=== PATIENT | female | born 1990 | race Caucasian/White ===

== ENCOUNTER 2016-12-19 12:55 | Emergency (ER) | payer OTHER ==
[~2016-12-19] VITALS: Ht 157.5 cm; Wt 64.0 kg
[~2016-12-19 12:55] MED LIST: BENTYL10 MG PO; CIPRO500 MG PO; CLEOCIN HCL300 MG PO; DIAZEPAM10 MG PO; EXTRA STRENGTH500 MG PO; IBUPROFEN600 MG PO; MOTRIN IB200 MG PO; NORCO 5-325 TA1 EACH PO; PERCOCET 10-321 EACH PO
[2016-12-19] MEDS ORDERED: ONDANSETRON ODT8 MG PO (14:07)
[2016-12-19] MEDS ORDERED: NORCO 5-325 TA1 EACH PO (14:07)
--- OUTSIDE RECORDS SUMMARY | 2016-12-19 14:09 | XMS ---
Demographics + + + | Address | [address] | | | [place] [address] | + + + | Preferred Language | Unknown | + + + | Marital Status | Unknown | + + + | Orthodoxy Affiliation | Unknown | + + + | Race | Unknown | + + + | Ethnic Group | Unknown | + + + Author + + + | Author | [facility] | + + + | Organization | [facility] | + + + | Address | [address] | | | [place] [address] | + + + | Phone | | + + + Care Team Providers + + + + | Care Staff Anesthesiologist Name | Role | Phone | + + + + Unavailable | Unavailable | + + + + PROBLEMS Unknown Problems ALLERGIES Unknown Allergies SOCIAL HISTORY No smoking Hx information available PLAN OF CARE VITAL SIGNS MEDICATIONS Unknown Medications RESULTS No Results PROCEDURES No Known procedures IMMUNIZATIONS No Known Immunizations"
--- OUTSIDE RECORDS SUMMARY | 2016-12-19 14:10 | XMS ---
Demographics + + + | Address | [address] | | | [place] [address] | + + + | Preferred Language | Unknown | + + + | Marital Status | Unknown | + + + | Episcopalian Affiliation | Unknown | + + + | Race | Unknown | + + + | Ethnic Group | Unknown | + + + Author + + + | Author | [facility] | + + + | [facility] | + + + | Address | [address] | | | [place] [address] | + + + | Phone | [phone] | + + + Care Team Providers + + + + | Care Tree And Shrub Worker Name | Role | Phone | + + + + Unavailable | Unavailable | + + + + PROBLEMS +---------+ + + +--------+ + + | Type | Condition | ICD9-CM | [id number] | Onset | Condition | SNOMED | | | | Code | Code | Dates | Status | Code | +---------+ + + +--------+ + + | Problem | Alcoholism | | F10.20 | | Active | [id number] | | | in | | | | | | | | recovery | | | | | | +---------+ + + +--------+ + + | Problem | Anxiety | F41.9 | | | Active | [id number] | | | disorder | | | | | | +---------+ + + +--------+ + + | Problem | PTSD | | F43.10 | | Active | [id number] | | | (post-trau | | | | | | | | matic | | | | | | | | stress | | | | | | | | disorder) | | | | | | +---------+ + + +--------+ + + ALLERGIES + + + + +--------+ | Substance | Reaction | Event Type | Date | Status | + + + + +--------+ | Penicillin | rash | Drug Allergy | Oct, | Active | + + + + +--------+ SOCIAL HISTORY Never Assessed PLAN OF CARE + +---------+ | Activity | Details | + +---------+ +---+ | | +---+ + + + | Follow Up | prn Reason:null | + + + VITAL SIGNS + + + + | Height | 62 in | 2016-11-02 | + + + + | Weight | 140 lbs | 2016-11-02 | + + + + | BMI | 25.60 kg/m2 | 2016-11-02 | + + + + | Heart Rate | 101 /min | 2016-11-02 | + + + + | Blood pressure systolic | 133 mm Hg | 2016-11-02 | + + + + | Blood pressure diastolic | 80 mm Hg | 2016-11-02 | + + + + MEDICATIONS + + + + + + + +--------+ | Medicati | Instruct | Dosage | Frequenc | Start | End Date | Duration | Status | | on | ions | | y | Date | | | | + + + + + + + +--------+ | Valium | intravag | 1 tablet | | Oct, | | 7 days | Active | | 10 mg | inally | as | | 2016 | | | | | | three | needed | | | | | | | | times a | | | | | | | | | day | | | | | | | | | PRN/as | | | | | | | | | needed | | | | | | | + + + + + + + +--------+ | Flexeril | | | | | | | Active | | 10 MG | | | | | | | | + + + + + + + +--------+ RESULTS No Results PROCEDURES + + +--------+ + | Procedure | Date Ordered | Result | Body Site | + + +--------+ + | [facility] MED/CURRENT | Nov 02, 2016 | | | | MED MERGE | | | | + + +--------+ + | DOC MEDS VERIFIED | Nov 02, 2016 | | | | W/PT OR RE | | | | + + +--------+ + | FLU IMM NO | Nov 02, 2016 | | | | ORD/ADMIN DOC MUKESH | | | | + + +--------+ + | PT TOBACCO USE DONE | Nov 02, 2016 | | | | RCVD TLK | | | | + + +--------+ + IMMUNIZATIONS No Known Immunizations MEDICAL (GENERAL) HISTORY + + + + | Type | Description | Date | + + + + | Medical History | headache | | + + + + | 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 Ospina | | + + + + | Hospitalization History | colitis | 2015 | + + + +"
--- OUTSIDE RECORDS SUMMARY | 2016-12-19 14:11 | XMS ---
Demographics + + + | Address | [address] | | | [place] [address] | + + + | Preferred Language | Unknown | + + + | Marital Status | Unknown | + + + | Jew Affiliation | Unknown | + + + | Race | Unknown | + + + | Ethnic Group | Unknown | + + + Author + + + | Author | [facility] | + + + | Organization | [facility] | + + + | Address | [address] | | | [place] [address] | + + + | Phone | | + + + Care Team Providers + + + + | Care Cryptozoologist Name | Role | Phone | + + + + Unavailable | Unavailable | + + + + PROBLEMS Unknown Problems ALLERGIES Unknown Allergies SOCIAL HISTORY No smoking Hx information available PLAN OF CARE VITAL SIGNS MEDICATIONS Unknown Medications RESULTS No Results PROCEDURES No Known procedures IMMUNIZATIONS No Known Immunizations"
== END 2016-12-19 14:50 | disposition home or self-care (01) ==
LOC: ED 12:55
DX: R11.2 Nausea with vomiting, unspecified (principal); T40.2X5A Adverse effect of other opioids, initial encounter; K08.89 Other specified disorders of teeth and supporting structures; F17.200 Nicotine dependence, unspecified, uncomplicated; Z88.0 Allergy status to penicillin; Z90.710 Acquired absence of both cervix and uterus; Z79.899 Other long term (current) drug therapy
CPT/HCPCS: 99283

== ENCOUNTER 2017-02-08 16:02 | Emergency (ER) | payer OTHER ==
[~2017-02-08] VITALS: Ht 157.5 cm; Wt 63.5 kg
[~2017-02-08 16:02] MED LIST changes: +ONDANSETRON ODT8 MG PO
[2017-02-08] MEDS ORDERED: TAMIFLU75 MG PO (16:22)
[2017-02-08] MEDS ORDERED: ZOFRAN ODT4 MG PO (16:22)
[2017-06-09] MEDS ORDERED: AMBIEN10 MG PO (11:34)
== END 2017-02-08 16:40 | disposition home or self-care (01) ==
LOC: ED 16:02
DX: J11.1 Influenza due to unidentified influenza virus with other respiratory manifestations (principal); F17.200 Nicotine dependence, unspecified, uncomplicated; Z90.710 Acquired absence of both cervix and uterus; Z88.0 Allergy status to penicillin
CPT/HCPCS: 99283

== ENCOUNTER 2017-07-11 14:27 | Inpatient (IN) | payer OTHER ==
[~2017-07-11] VITALS: Ht 157.5 cm; Wt 63.6 kg
[~2017-07-11 14:27] MED LIST changes: +AMBIEN10 MG PO; +TAMIFLU75 MG PO; +ZOFRAN ODT4 MG PO
--- NOTE | 2017-07-11 17:54 | NUR ---
RECIEVED REPORT FROM POLINA FORBES OVER THE PHONE. POLINA FORBES REQUESTS THAT MED/SURG START MEDS DUE TO PYXIS ISSUE. IV FLUIDS CHANGED TO LR AT 125ML/HR. IV FLGYL STARTED, CIPRO WILL RUN WHEN COMPLETE. NO PAIN MEDICATIONS AVAILABLE. NO FAMILY LOCALLY. PT EDUCATION GIVEN. PT VOIDED 100ML.
--- NOTE | 2017-07-11 19:20 | NUR ---
IN ROOM FOR REPORT, PT IS AWAKE IN BED AND READY TO HEAD TO SURGERY. SHE HAS LR AND CIPRO INFUSING AT THIS TIME. CALL LIGHT IS WITHIN REACH.
--- NOTE | 2017-07-11 19:40 | NUR ---
PT WAS TAKEN TO SURGERY AT THIS TIME.
--- NOTE | 2017-07-11 21:32 | NUR ---
07/11/172131 Vonda Jones 2116 PT ARRIVED TO PACU, PT REACTIVE WITH 6L VIA MASK ON. RESP EVEN AND UNLABORED. 2119 PT WOKE TO TACTILE STIMULI AND O2 WAS REMOVED PER REQUEST. PT ENCOURAGED TO DEEP BREATH AND COUGH. PT ABLE TO FOLLOW COMMANDS.
--- NOTE | 2017-07-11 22:42 | NUR ---
PT ARRIVED BACK FROM PACU. HER RESPRIAATIONS ARE EVEN AND NONLABORED. VS ARE WNL. PT IS RATING PAIN AT 4/10. SHE IT DRINKING WATER AT THIS TIME AND NO COMPLAINTS OF NAUSEA.
--- NOTE | 2017-07-11 23:10 | NUR ---
PATIENT CALLED STATED HER PAIN IS GOING UP TO 6.5 TO 7. RN YESSI NOTIFIED.PATIENT ASKED FOR COLD AND WARM PACK. GIVEN.
--- NOTE | 2017-07-12 01:53 | NUR ---
PT CALLED COMPLAINING OF 6/10 PAIN, WE DISCUSSED PAIN MEDICATION OPTIONS AND PT AGREED TO TRY MOTRIN AND 1 MORE DOSE OF MORPHIN THEN SWITCH TO 2 MORCO AT A TIME. PT DENIES FURTHER NEEDS AT THIS TIME.
--- NOTE | 2017-07-12 04:09 | NUR ---
ADMINISTERED 2 NORCO FOR 5/10 PAIN, AND BROUGHT PT A NEW HEAT PAD FOR HER NECK. FRESH WATER IS AT BEDSIDE, HELPED PT TO THE COMMODE AND BACK TO BED. LAP SITES ARE DRY AND INTACT. PT DENIES FURTHER NEEDS AT THIS TIME.
--- NOTE | 2017-07-12 06:03 | NUR ---
HELPED PT TO THE RESTROOM, AND BROUGHT PT ORANGE JUICE. PT STATES THE GAS PAIN IS WORSE, WILL TRY TO HOLD OFF ON PAIN MEDS.
--- NOTE | 2017-07-12 06:52 | NUR ---
AFTER ENCOURAGING PT TO WALK TO HELP RELIEVE THE GAS PAIN, PT WALKED SANTIAGO APPROX 8 TIMES. SHE STATES HER ABDOMINAL PAIN INCREASED TO A 7/10. ADMINISTERING 2 MG IV MORPHINE AT THIS TIME.
--- NOTE | 2017-07-12 07:36 | NUR ---
PT SITTING UP IN BED ALERT AND ORIENTED, NO DISTRESS NOTED. PT TEXTING ON PHONE AND VISITNG WITH GUEST AT BEDSIDE.
--- NOTE | 2017-07-12 08:04 | NUR ---
PT SITTING UP EATING BREAKFAST HASHBROWNS WITH KETCHUP AND SAUSAGE AND LAZCANO. NO DISTRESS NOTED. PT ALSO VISITNG ON CELL PHONE. SHE REPORTS PAIN 8/10 AT THIS TIME. AT RIGHT SHOULDER AND ABD
--- NOTE | 2017-07-12 09:39 | NUR ---
RN INTO RE-ASSESS PT PAIN, PT RESTING IN BED EYES CLOSED RR EVEN AT 16 BPM NO DISTRESS NOTED PT POSTURE AND FACIAL FEATURES RELAXED, PT APPEARS TO BE SLEEPING. PT ALERT TO RN IN ROOM, DROWSY REPORTS PAIN 5/10 MOTRIN ADMINISTERED. PT CONSUMED 90% OF BREAKFAST NO NAUSEA. REQUEST ORANGE SHERBERT ICE CREAM. NO OTHER REQUESTS AT THIS TIME.
--- NOTE | 2017-07-12 10:32 | HP ---
[facility] [address] [place], [place] [address] Signed ADMISSION DATE: 07/11/2017 REASON FOR ADMISSION: Severe progressive right lower abdominal pain. HISTORY OF PRESENT ILLNESS: This 26-year-old white woman, presented to the emergency room where she was evaluated by Dr. Valladares, emergency room physician, with complaint of severe right lower abdominal pain. Her pain began on Tuesday (today is Tuesday). Her pain has gradually worsened and radiates somewhat into the back, but is most dominantly at McBurney's point. She has had no associated hematemesis or blood per rectum, but did describe some diarrhea. She carries a diagnosis of "ulcerative colitis" from the past, so she takes no medications for management of it, generally speaking. She has had no blood per rectum. PAST MEDICAL HISTORY: Her past medical history does include cholecystectomy in [place], [place], as well as hysterectomy in 2017, by Dr. Saunders; review of his operative report confirms that she had chronic pelvic pain, interstitial cystitis, and known history of alcoholism in remission and bladder mucosal metaplasia. She did undergo a CT scan as interpreted by Dr. Navas, which showed no evidence of ovarian mass and the appendix was visualized, but not distended or fluid-filled and there was a subtle haziness around it, possibly due to early appendicitis. The small bowel and colon appeared normal. There is no sign of colitis. There was surgical absence of the uterus. Ovaries are considered normal. There was no sign of ovarian cyst. The gallbladder was surgically absent as well. PAST MEDICAL HISTORY: Includes: 1. Ulcerative colitis, currently untreated. 2. History of hysterectomy for pelvic pain. 3. History of cholecystectomy for biliary colic. 4. Colonoscopy in the past by Dr. Ospina, said to be normal without sign of colitis. CURRENT MEDICATIONS: Include Valium use history. Also, Ambien 10 mg at bedtime. ALLERGIES: She has allergy to penicillin. REVIEW OF SYSTEMS: Electronically Signed By: KWAME HENDRIX MD 07/12/17 1032 PATIENT NAME: GISELLA ELISE HISTORY AND PHYSICAL DATE OF : 86 REPORT #: [id number] PHYSICIAN: KWAME HENDRIX MD PCP: DHEERAJ CARMONA REPORT IS CONFIDENTIAL AND NOT TO BE RELEASED WITHOUT AUTHORIZATION [facility] [address] [place], [place] [address] Signed She denies any shortness of breath or chest pain. Has had no dysphagia or dysuria. Denies any hematemesis. Denies flank pain. PHYSICAL EXAMINATION: GENERAL: Dark haired, white woman, who looks to be quite uncomfortable. Mucous membranes are slightly dry. Trachea is midline. CHEST: Clear. HEART: Regular without murmur. ABDOMEN: Nondistended and flat. She has some abdominal tattoos on the left side. Rovsing's sign is equivocal. She has marked tenderness at McBurney point. There is no palpable mass. Has no ascites. EXTREMITIES: Show no clubbing, cyanosis, or edema. LABORATORY DATA: Show a white count of 7.2, hematocrit of 40.7, platelets 245,000. Chem profile is normal. Potassium is 3.5. Liver enzymes are normal. Beta-HCG negative as would be expected with hysterectomy. Urinalysis is normal. CT scan is reviewed in addition to the actual report, which shows a normal liver and spleen. There is no sign of ascites. Pancreas appears normal. Both kidneys are normal. There is no evidence of umbilical hernia proper. No sign of incisional hernia. The coronal view shows no evidence of terminal ileitis or colitis otherwise. Appendix is visualized and slightly edematous as previously described, but not elongated and I detect no sign of fecalith proper. ASSESSMENT: Her clinical exam is highly consistent with appendicitis, though I suspect she probably has some underlying pain problems generally. She has had relatively numerous operations given her young age. Still, there is tenderness at McBurney's point and although white count is normal, CT scan does show findings suggestive of possible early appendicitis. Under these circumstances, I offered continued observation versus progressing to operation to include laparoscopy and possible open procedure to include appendectomy. The risks of bleeding, infection, failure of diagnosis, missed diagnosis, and need for other indicated procedures were reviewed in detail. She understands. She strongly wished to proceed to the operation. We will make arrangements to do that tonight. MD ANITHA Leon/MARGARITOL /[id number] Electronically Signed By: KWAME HENDRIX MD 07/12/17 1032 PATIENT NAME: GISELLA ELISE HISTORY AND PHYSICAL DATE OF : 86 REPORT #: [id number] PHYSICIAN: KWAME HENDRIX MD PCP: DHEERAJ CARMONA REPORT IS CONFIDENTIAL AND NOT TO BE RELEASED WITHOUT AUTHORIZATION [address] [address] Signed cc: MD Fei Naranjo DO Copies: VEGA VALLADARES MD, JAMES D DO ~ Electronically Signed By: KWAME HENDRIX MD 07/12/17 1032 PATIENT NAME: GISELLA ELISE HISTORY AND PHYSICAL DATE OF : 86 REPORT #: [id number] PHYSICIAN: KWAME HENDRIX MD PCP: DHEERAJ CARMONA REPORT IS CONFIDENTIAL AND NOT TO BE RELEASED WITHOUT AUTHORIZATION
--- NOTE | 2017-07-12 10:32 | OR ---
[facility] [address] [place], [place] [address] Signed DATE OF OPERATION: 07/11/2017 SURGEON: Kwame Hendrix MD PREOPERATIVE DIAGNOSES: 1. Severe right lower abdominal pain and tenderness. CT scan equivocal for appendicitis. 2. History of cholecystectomy and hysterectomy. POSTOPERATIVE DIAGNOSES: 1. Appendix appearing white and reasonably soft, uncertain if early appendicitis. 2. Meckel's diverticulum. PROCEDURE: 1. Laparoscopy. 2. Laparoscopic Meckel's diverticulectomy. 3. Laparoscopic appendectomy. ANESTHESIA: General endotracheal, Rizwana Marylu, NUCLEAR TECHNICIAN and local 20 mL of 0.25% Marcaine with epinephrine. INDICATION: This 26-year-old white woman presented to the emergency room and evaluated by Dr. Scott Valladares for considerable right lower abdominal pain and tenderness. The patient has a history of cholecystectomy in the past as well as hysterectomy performed by Dr. Deleon about a year ago. This was for chronic abdominal pain. She began having pain in the right lower abdomen on Tuesday (today is Tuesday) and has been unrelenting. A CT scan was performed, which showed the appendix to have possible mild early appendicitis or edema. No sign of dilation. LAB STUDIES: Including urinalysis, CBC, and chem profile are essentially normal. She has surgical absence of uterus and gallbladder as noted on CT scan. There is no sign of ovarian cystic change. She has been fluid resuscitated and is taken to the operating room for laparoscopy for laparoscopic appendectomy and other indicated procedures. She understands the risks of bleeding, infection, failure to cure the problem, misdiagnosis, and other unforeseen complications including possible need for conversion to open operation. Understands that she wished to proceed. FINDINGS: Electronically Signed By: KWAME HENDRIX MD 07/12/17 1032 PATIENT NAME: GISELLA ELISE OPERATIVE REPORT DATE OF : 86 REPORT #: [id number] PHYSICIAN: KWAME HENDRIX MD PCP: DHEERAJ CARMONA REPORT IS CONFIDENTIAL AND NOT TO BE RELEASED WITHOUT AUTHORIZATION [facility] [address] [place], [place] [address] Signed There is no sign of ascites or carcinomatosis. The liver appeared normal. There was scar tissue where a previous gallbladder was. As regard to the cecum, it appeared normal, and the appendix was relatively soft, but was white and although not firm and hard may represent early appendicitis. The terminal ileum was normal. Of note, but not expected, was a relatively large Meckel's diverticulum approximately 2 feet from the ileocecal valve as might be expected. This was excised endoscopically and transverse configuration overall. The right ovary was identified and normal. No sign of cyst or other problem. The remaining small bowel and stomach were normal. DESCRIPTION OF PROCEDURE: The patient was brought to the operating room, given a general endotracheal anesthetic. She received preoperative antibiotic Cipro as provided by emergency room physician, though cefoxitin had been ordered. Sequential compression device stockings were used, and heparin was subcutaneously administered. After satisfactory general endotracheal anesthesia, the abdomen was prepared with a chlorhexidine solution and draped sterilely. An infraumbilical incision was made transecting the previous circum or umbilical incision. Dissection was carried through the subcutaneous tissue and using an open Steve cannula technique, pneumoperitoneum was achieved to a level of 14 mmHg of carbon dioxide gas. Intraabdominal inspection showed no sign of ascites or carcinomatosis. No sign of purulence. The liver was examined and found to be normal with mild fatty infiltration. There was scar tissue noted in the gallbladder fossa area. A 12 mm epigastric port was placed, and the camera placed to that site. A 30-degree scope was used. Manipulation of the right lower abdomen after rotating the patient [id number] demonstrated the cecum which was relatively mobile and non inflamed. The appendix was visualized and found to be somewhat whitish elongated, not particularly inflamed and certainly not purulent by any means. A right lower quadrant 5 mm port was placed in with two hand manipulation. The small bowel was run from the terminal ileum more proximally. The terminal ileum appeared normal as did the antimesenteric fat pad of Treves. Approximately 2 feet from the ileocecal valve was found to be a Meckel's diverticulum. It was relatively generous in size and with characteristic appearance including the Meckel's mesentery. It did not appear to be particularly inflamed. There is certainly no sign of perforation. The Meckel's diverticulum was elevated and plans made for resection. The mesentery to the Meckel's was divided with electrocautery better skeletonizing the Meckel's diverticulum. Using an Endo JUNE stapling device, excision of Meckel's diverticulum was undertaken. The specimen was withdrawn through the infraumbilical port site and later bivalved and found to have relatively normal-appearing mucosa. Irrigation was undertaken at the transection line in the small bowel. Although the Electronically Signed By: KWAME HENDRIX MD 07/12/17 1032 PATIENT NAME: GISELLA ELISE OPERATIVE REPORT DATE OF : 86 REPORT #: [id number] PHYSICIAN: KWAME HENDRIX MD PCP: DHEERAJ CARMONA REPORT IS CONFIDENTIAL AND NOT TO BE RELEASED WITHOUT AUTHORIZATION [facility] [address] [place], [place] [address] Signed transection was not perfectly perpendicular, was slightly tangential, but certainly showed no evidence of compromising small bladder that remained. Attention was then turned towards the cecum. The cecum was more fully manipulated and the appendix could be identified. It was whitish in color, not particularly thickened and certainly no signs of advanced inflammation, and possibly early appendicitis. The appendix was elevated and a window created between the appendix and the cecum, and an Endo JUNE stapling device was used to transect the base of the appendix flushed with the cecum. The mesentery was similarly secured with stapling device. The appendix was withdrawn through the infraumbilical port site as well and offloaded. Photographs were taken of both specimens. Irrigation was undertaken. A small amount of cautery was applied to the staple line of the cecum. The mesenteric side looked dry. Irrigation was undertaken more fully. Manipulation of the right adnexal structure showed an ovary which had no sign of cystic change or other problem. There was surgical absence of the uterus. Plans were then made for closure. The trocars were removed under direct visualization showing no sign of bleeding. The infraumbilical fascial incision was reapproximated with interrupted 0 Vicryl suture. All wounds were copiously irrigated with saline solution. Skin was closed with interrupted 2-0 Vicryl. Steri-Strips were applied. The patient was ultimately extubated, transferred to recovery in good condition having suffered no complication. Sponge, needle, and instrument counts were reported as correct x3. MD ANITHA Leon/MAIRA /[id number] cc: Scott Valladares MD Copies: SCOTT VALLADARES MD Electronically Signed By: KWAME HENDRIX MD 07/12/17 1032 PATIENT NAME: GISELLA ELISE OPERATIVE REPORT DATE OF : 86 REPORT #: [id number] PHYSICIAN: KWAME HENDRIX MD PCP: DHEERAJ CARMONA REPORT IS CONFIDENTIAL AND NOT TO BE RELEASED WITHOUT AUTHORIZATION [address] [address] Signed ~ Electronically Signed By: KWAME HENDRIX MD 07/12/17 1032 PATIENT NAME: GISELLA ELISE OPERATIVE REPORT DATE OF : 86 REPORT #: [id number] PHYSICIAN: KWAME HENDRIX MD PCP: MORIOKA,DHEERAJ C WHNP REPORT IS CONFIDENTIAL AND NOT TO BE RELEASED WITHOUT AUTHORIZATION
[2017-07-12] MEDS ORDERED: TYLENOL EXTRA500 MG PO (10:56)
[2017-07-12] MEDS ORDERED: CLONIDINE HCL0.1 MG PO (10:56)
--- NOTE | 2017-07-12 10:58 | NUR ---
MED REC COMPLETE
--- NOTE | 2017-07-12 11:15 | NUR ---
RN CALLED TO REPORT THAT PT HAS PAIN 09/16 HAS HAD ALL ORAL PAIN MEDICATION AVAILABLE, LEFT A MESSAGE ON CELL PHONE. WILL GIVE 2MG IV MORPHINE PT CAN NOT HAVE NORCO AGAIN UNTIL 1200. ALSO GAVE PT ICE AND HEAT PACKS, ICE FOR ABD AND HEAT FOR SHOULDERS. PT REPORTS THAT SHE HAS HAD OXYCODONE 5MG PO BEFORE AND THAT WAS MORE EFFECTIVE. SHE ALSO REPORTS THAT THE DILAUDID I.V. THAT SHE WAS GIVEN IN THE E.D. WAS MORE EFFECTIVE THAN THE MORPHINE SHE HAS BEEN GETTING INPATIENT.
--- NOTE | 2017-07-12 12:12 | NUR ---
RN INTO PT ROOM TO ASSESS PT PAIN. PT RESTING IN BED EYES CLSOED RR EVEN AT 16 BREATH PER MINUTE. NO DISTRESS NOTED. PT APPEARED TO BE SLEEPING, PT ALERT TO RN IN ROOM REPORTS PAIN 6/10 REQUEST PAIN COVERAGE, TWO TABS NORCO ADMINISTERED.
[2017-07-12] MEDS ORDERED: IBUPROFEN600 MG PO (13:42)
[2017-07-12] MEDS ORDERED: MAPAP325 MG PO (13:42)
[2017-07-12] MEDS ORDERED: PERCOCET 7.5-31 EACH PO (13:43)
--- NOTE | 2017-07-12 13:51 | NUR ---
PT LAYING IN BED WITH TV QUIETLY ON. SHE SEEMED ALERT, ORIENTED AND COMFORTABLE WITH MY VISIT. SHE STATED HER PAIN WAS AT AN 8 AND HAD BEEN WAITING FOR 45 MIN. FOR HER RN TO COME WITH MORE PAIN MEDS. I TOLD HER I WOULD GO AND CHECK ON HER RN, AND SEE IF SHE CAN HAVE MORE PAIN MEDS. PT THANKED ME, AND I VISITED WITH RN HERIBERTO WHO STATED SHE HAD GIVEN PT EVERYTHING DR HAD PRESCRIBED. SHE MENTONED THAT SHE WILL CONSULT WITH MORE. WILL FOLLOW NEEDED
--- NOTE | 2017-07-12 14:15 | NUR ---
PT EDUCATION PROVIDED ON ACTIVITY RESTRITIONS AND NO SOAKING IN BODIES OF WATER. WOUND CARE DISCUSSED, PT VERBALIZED INSTRUCTIONS. DISCUSSED SIGNS AND SYMPTOMS TO SEEK MEDICAL ATTENTION. DISCUSSED MEDICATIONS NEXT DOSE AND SAFE ADMINISTRATION. TO DRINK PLENTY OF WATER TO AVOID CONSTIPATION WITH PAIN MEDICATIONS. TO AMBULATE AT HOME.
== END 2017-07-12 14:25 | disposition home or self-care (01) | DRG 331 ==
LOC: ED 14:27 → MS 16:40
PROVIDERS: ADMIT Surgery
PROC: 0DTJ4ZZ Resection of Appendix, Percutaneous Endoscopic Approach (ICD-10-PCS; 2017-07-11)
PROC: 0DB84ZZ Excision of Small Intestine, Percutaneous Endoscopic Approach (ICD-10-PCS; principal; 2017-07-11 20:11)
DX: Q43.0 Meckel's diverticulum (displaced) (hypertrophic) (principal); K37 Unspecified appendicitis; F17.200 Nicotine dependence, unspecified, uncomplicated; F10.21 Alcohol dependence, in remission; K76.0 Fatty (change of) liver, not elsewhere classified; Z79.899 Other long term (current) drug therapy; Z88.0 Allergy status to penicillin
CPT/HCPCS: 00840; 74177; 80053; 81001; 83690; 84703; 85025; 88304; 96374; 96375; 96376; 99285; 99406; J0694; J0735; J0744; J1100; J1170; J1200; J1644; J1885; J2250; J2270; J2405; J2704; J3010; J3475; J7030; J7120; Q9967

== ENCOUNTER 2018-12-01 10:51 | Emergency (ER) | payer OTHER ==
[~2018-12-01] VITALS: Ht 157.5 cm; Wt 54.5 kg
[~2018-12-01 10:51] MED LIST changes: +CLONIDINE HCL0.1 MG PO; +MAPAP325 MG PO; +PERCOCET 7.5-31 EACH PO; +TYLENOL EXTRA500 MG PO
--- OUTSIDE RECORDS SUMMARY | 2018-12-01 10:54 | XMS ---
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 Max VISIT COUNT (12 MO.) [address] [address] VALERIE Boyce TOTAL 3 NOTE: Visits indicate total known visits. ED/UCC VISIT TRACKING (12 MO.) 12/01/2018 10:52 [facility] [place] TYPE: Emergency COMPLAINT: - FLANK PAIN, [facility] PROBLE[facility] DIAGNOSES: 26964. L SIDED ABD, HIP, LEG PAIN 40446. Left lower quadrant pain 02/01/2018 20:[facility] DIAGNOSES: 78668. RO SIDE PAIN 97584. Unspecified abdominal pain INPATIENT VISIT TRACKING (12 MO.) No inpatient visits to display in this time frame [email or web address]
[2018-12-01] MEDS ORDERED: VITAMIN B-1100 M1 PO (11:35)
[2018-12-01] MEDS ORDERED: MULTI-VITAMIN1 EACH PO (11:35)
[2018-12-01] MEDS ORDERED: NICOTINE PATCH1 EACH TD (11:35)
[2018-12-01] MEDS ORDERED: FOLIC ACID1 MG PO (11:35)
[2018-12-01] MEDS ORDERED: HYDROXYZINE PAM25 MG PO (11:36)
[2018-12-01] MEDS ORDERED: INDOMETHACIN50 MG PO (13:05)
[2018-12-01] MEDS ORDERED: ZOFRAN4 MG PO (13:05)
== END 2018-12-01 13:32 | disposition home or self-care (01) ==
LOC: ED 10:51
DX: R10.9 Unspecified abdominal pain (principal); F17.200 Nicotine dependence, unspecified, uncomplicated; Z90.710 Acquired absence of both cervix and uterus; Z88.0 Allergy status to penicillin; Z79.899 Other long term (current) drug therapy
CPT/HCPCS: 74176; 80053; 81001; 83690; 83735; 85025; 96374; 96375; 99284-25; J1885; J2550

== ENCOUNTER 2019-06-03 18:19 | Emergency (ER) | payer OTHER ==
[~2019-06-03] VITALS: Ht 157.5 cm; Wt 59.1 kg
[~2019-06-03 18:19] MED LIST changes: +FOLIC ACID1 MG PO; +HYDROXYZINE PAM25 MG PO; +INDOMETHACIN50 MG PO; +MULTI-VITAMIN1 EACH PO; +NICOTINE PATCH1 EACH TD; +VITAMIN B-1100 M1 PO; +ZOFRAN4 MG PO
--- OUTSIDE RECORDS SUMMARY | 2019-06-03 18:22 | XMS ---
PreManage Notification: GISELLA ELISE Security Junior Business Analyst Events No recent Security Events currently on file CRITERIA MET - Group Notification - [facility] - Has Care Guidelines - PDMP CARE PROVIDERS LEANDRO GOLDBERG Nurse Practitioner: Current PHONE: [phone] MICHAEL PIEDRA Internal Medicine Current PHONE: [phone] ARTHUR MCKAY Nurse Practitioner: 02/05/2015-Current PHONE: Unknown El has no Care Guidelines for this patient. Care History Medical/Surgical 04/10/2019 [facility] - [facility] WAS ABLE TO CONTACT PATIENT- PATIENT STATED SHE DOES NOT HAVE A PCP BUT HAS BEEN SEEN MULTIPLE TIMES AT [facility]. - CHW SUGGESTED TO CONTACT [facility] AND REQUEST TO ESTABLISH CARE-PATIENT STATED SHE WILL CONTACT OFFICE AND FOLLOW UP IN REGARDS TO RECENT ED VISIT. 04/09/2019 [facility] - CHW CALLED PATIENT- HELP WITH ESTABLISHING PCP- - PATIENT CONTACT NUMBER GOES STRAIGHT TO VOICEMAIL- NO VOICEMAIL BOX SET UP. - CHW SENT PATIENT NO PCP LETTER. 12/04/2018 [facility] CASE MANAGEMENT REFERRAL MADE- PATIENT HAS [facility] AND NO PCP. E.D. VISIT COUNT (12 MO.) 1 [facility] 3 [facility] TOTAL 4 NOTE: Visits indicate total known visits. ED/UCC VISIT TRACKING (12 MO.) 06/03/2019 18:[address] [facility] [place] TYPE: Emergency COMPLAINT: - SOB/NAUSEA 04/08/2019 19:[address] [facility] [place] TYPE: Emergency COMPLAINT: - HEADACHES DIAGNOSES: - Migraine, unspecified, not intractable, without status migrai - Headache - Nicotine dependence, unspecified, uncomplicated - Allergy status to penicillin 12/01/2018 10:52 [place] [facility] [place] TYPE: Emergency COMPLAINT: - FLANK PAIN, URINE PROBLEM DIAGNOSES: - Unspecified abdominal pain - Nicotine dependence, unspecified, uncomplicated - Allergy status to penicillin - Other snf (current) drug therapy - Acquired absence of both cervix and uterus [facility]2018 [facility] [place] [facility] DIAGNOSES: 42500. L SIDED ABD, HIP, LEG PAIN 93015. Left lower quadrant pain INPATIENT VISIT TRACKING (12 MO.) No inpatient visits to display in this time frame [email or web address]
[2019-06-03] MEDS ORDERED: METHYLPHENIDATE20 M1 PO (18:34)
[2019-06-03] MEDS ORDERED: OMEPRAZOLE20 MG PO (22:05)
== END 2019-06-03 22:25 | disposition home or self-care (01) ==
LOC: ED 18:19
DX: K27.9 Peptic ulcer, site unspecified, unspecified as acute or chronic, without hemorrhage or perforation (principal); F90.9 Attention-deficit hyperactivity disorder, unspecified type; F17.200 Nicotine dependence, unspecified, uncomplicated; Z88.0 Allergy status to penicillin; Z79.899 Other long term (current) drug therapy
CPT/HCPCS: 74177; 80053; 81001; 83690; 84703; 85025; 96361; 96375; 96376; 99284-25; C9113; J1170; J2405; J7030; Q9967

== ENCOUNTER 2022-02-24 19:23 | Emergency (ER) | payer MEDICAID ==
[~2022-02-24] VITALS: Ht 157.5 cm; Wt 50.8 kg
[~2022-02-24 19:23] MED LIST changes: +METHYLPHENIDATE20 M1 PO; +OMEPRAZOLE20 MG PO
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
[2022-02-24] MEDS ORDERED: HYDROCODON-ACE1 EA10 PO (22:57)
== END 2022-02-24 23:13 | disposition home or self-care (01) ==
LOC: ED 19:23
DX: M79.18 Myalgia, other site (principal); F17.200 Nicotine dependence, unspecified, uncomplicated; Z88.0 Allergy status to penicillin
CPT/HCPCS: 36415; 74176; 80053; 81003; 84703; 85025; 96374; 96375; 96376; 99284-25; A9270; J1170; J1885; J2270; J2405; J7121

== ENCOUNTER 2022-09-23 15:54 | Emergency (ER) | payer OTHER, MEDICAID ==
[~2022-09-23] VITALS: Ht 157.5 cm; Wt 50.9 kg
[~2022-09-23 15:54] MED LIST changes: +HYDROCODON-ACE1 EA10 PO
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
[2022-09-23 18:19] VITALS: BP 107/74
[2022-09-24] MEDS ORDERED: SUBOXONE 8 MG-1 EAC1 SL (23:46)
[2022-09-25] MEDS ORDERED: CHLORDIAZEPOXID25 MG PO (02:18)
== END 2022-09-23 18:27 | disposition home or self-care (01) ==
LOC: ED 15:54
DX: S66.912A Strain of unspecified muscle, fascia and tendon at wrist and hand level, left hand, initial encounter (principal); S50.812A Abrasion of left forearm, initial encounter; V89.2XXA Person injured in unspecified motor-vehicle accident, traffic, initial encounter; F17.200 Nicotine dependence, unspecified, uncomplicated; Z88.0 Allergy status to penicillin
CPT/HCPCS: 73090; 99283-25